=== PATIENT | female | born 1965 | race Caucasian/White ===

== ENCOUNTER 2017-09-28 19:49 | Emergency (ER) | payer MEDICAID, OTHER ==
[~2017-09-28 19:49] MED LIST: CYCL5TAB PO; OXYC-360 PO; Z.0.NO CURRENT MEDS
[2017-09-28 20:16] VITALS: BP 117/58; PULSE 76; RESP 18; TEMP 98.2; O2SAT 98
[2017-09-28] MEDS ORDERED: MOBI15TA PO (21:09)
[2017-09-28] MEDS ORDERED: ROBA750T PO (21:09)
[2017-09-28] MEDS ORDERED: TRAM50 PO (21:09)
--- NOTE | 2017-09-28 21:09 | PD ---
HPI Chief Complaint: Back/ Neck Pain or Injury Time Seen by Provider: 20:57 Travel History International Travel<30 days: No Contact w/Intl Traveler<30days: No Traveled to known affect area: No History of Present Illness HPI 52-year-old female complains of low back pain. Patient states that she has been doing a lot of heavy lifting recently. Patient has history of back pain in the past. Patient denies any fever chills. Patient states that the pain aching pain localized low back area. Patient denies any pain radiation. Patient denies any weakness or numbness of the pelvis area or lower extremity. Patient denies any problem with bladder or bowel control. On a scale of 1-10 the pain is an 8. PFSH Past Medical History Medical History: Denies Significant Hx Diminished Hearing: No Immunizations Current: Yes ?: Not Past Surgical History Section: Yes Social History Alcohol Use: No Tobacco Use: Yes (1PPD) Substance Use: No Allergies-Medications (Allergen,Severity, Reaction): Coded Allergies: Penicillins (Verified Allergy, Severe, 09/28/17) Reported Meds & Prescriptions Reported Meds & Active Scripts Active No Active Prescriptions or Reported Medications Review of Systems General / Constitutional: No: Fever Eyes: No: Visual changes HENT: No: Headaches Cardiovascular: No: Chest Pain or Discomfort Respiratory: No: Shortness of Breath Gastrointestinal: No: Abdominal Pain Genitourinary: No: Dysuria Musculoskeletal: No: Pain Skin: No Rash Neurologic: No: Weakness Psychiatric: No: Depression Endocrine: No: Polydipsia Hematologic/Lymphatic: No: Easy Bruising Physical Exam Narrative GENERAL: Well-nourished, well-developed patient. SKIN: Focused skin assessment warm/dry. HEAD: Normocephalic. EYES: No scleral icterus. No injection or drainage. NECK: Supple, trachea midline. No JVD or lymphadenopathy. CARDIOVASCULAR: Regular rate and rhythm without murmurs, gallops, or rubs. RESPIRATORY: Breath sounds equal bilaterally. No accessory muscle use. GASTROINTESTINAL: Abdomen soft, non-tender, nondistended. MUSCULOSKELETAL: No cyanosis, or edema. BACK: Patient has moderate tenderness in palpation lumbar area, without obvious deformity. No CVA tenderness. Negative straight leg raising. Neurologic exam normal. Data Data Last Documented VS Vital Signs Date Time Temp Pulse Resp B/P (MAP) Pulse Ox O2 Delivery O2 Flow Rate FiO2 09/28/17 20:16 98.2 76 18 117/58 (77) 98 Orders Orders Ketorolac Inj (Toradol Inj) (09/28/17 21:15) Dexamethasone Inj (Decadron Inj) (09/28/17 21:15) [facility] Medical Decision Making Medical Screen Exam Complete: Yes Emergency Medical Condition: Yes Differential Diagnosis Differential diagnosis including acute exacerbation low back pain, fracture, HNP , spinal stenosis. Narrative Course 52-year-old female with low back pain. History low back pain in the past. Neurologic exam normal. Decadron 8 mg IM. Toradol 60 mg IM. Diagnosis Primary Impression: Acute exacerbation of chronic low back pain Patient Instructions: General Instructions Additional Instructions: Take medications as needed for back pain. Apply moist heat to the back area. Follow-up with personal physician and orthopedist. Return if worse. Med/Other Pt SpecificInfo: Prescription(s) given Scripts Tramadol (Ultram) 50 Mg Tab 50 MG PO Q6H Y for PAIN, #12 TAB 0 Refills Prov: Baljinder Lazaro MD 09/28/17 Methocarbamol (Robaxin) 750 Mg Tab 750 MG PO QID for Muscle Spasm, #40 TAB 0 Refills Prov: Baljinder Lazaro MD 09/28/17 Meloxicam (Mobic) 15 Mg Tab 15 MG PO DAILY for Pain, #20 TAB 0 Refills Prov: Baljinder Lazaro MD 09/28/17 Disposition: 01 DISCHARGE HOME Condition: Stable Baljinder Lzaaro MD Sep 28, 2017 21:09
[2017-09-28] MEDS ORDERED: DEXAMETHASONE SOD PHOS 4 MG/ML VIAL IM ONE (21:15)
[2017-09-28] MEDS ORDERED: KETOROLAC TROMETHAMINE 60 MG/2 ML (IM) VIAL IM ONE (21:15)
== END 2017-09-28 21:56 | disposition home or self-care (01) ==
LOC: NEPD 19:49
DX: M54.5 Low back pain (principal); G89.29 Other chronic pain; F17.200 Nicotine dependence, unspecified, uncomplicated; Z88.0 Allergy status to penicillin
CPT/HCPCS: 96372; 99283; J1100; J1885